=== PATIENT | male | born 1950 | race Caucasian/White ===

== ENCOUNTER 2020-11-03 12:25 | Emergency (ER) | payer BC, OTHER ==
[2020-11-03 12:32] VITALS: BMI 31.8
[2020-11-03] MEDS ORDERED: BAMLANIVIMAB 700 MG in SODIUM CHLORIDE 180 ML IVPB ONE (13:26)
[2020-11-03 17:11] VITALS: BP 156/78; PULSE 78; TEMP 99.1
== END 2020-11-03 17:11 | disposition home or self-care (01) ==
LOC: JCOVINFU 12:25 → JER 12:25
DX: U07.1 COVID-19 (principal)
CPT/HCPCS: 99284-25; M0239; Q0239

== ENCOUNTER 2022-07-21 04:34 | Day surgery (SDC) | payer OTHER ==
[2022-07-19 14:56] VITALS: BMI 28.7
[2022-07-21 11:22] VITALS: TEMP 97.8
[2022-07-21 14:53] VITALS: BP 121/80; PULSE 79; RESP 16
== END 2022-07-21 12:15 | disposition home or self-care (01) ==
LOC: JASU-ENDO 04:34
PROVIDERS: ATTEND Internal Medicine Gastroenterology
PROC: 0DJD8ZZ Inspection of Lower Intestinal Tract, Via Natural or Artificial Opening Endoscopic (ICD-10-PCS; principal; 2022-07-21 12:30)
DX: Z12.11 Encounter for screening for malignant neoplasm of colon (principal); K64.8 Other hemorrhoids; I10 Essential (primary) hypertension; E11.9 Type 2 diabetes mellitus without complications; Z79.84 Long term (current) use of oral hypoglycemic drugs

== ENCOUNTER 2023-07-20 04:34 | Day surgery (SDC) | payer OTHER ==
[2023-07-19 15:58] VITALS: BMI 25.0
[2023-07-20 10:29] VITALS: RESP 18
[2023-07-20 10:40] VITALS: BP 137/82; PULSE 61; TEMP 98.3
== END 2023-07-20 10:38 | disposition home or self-care (01) ==
LOC: JASU-ENDO 04:34
PROVIDERS: ATTEND Internal Medicine Gastroenterology
PROC: 0DB78ZX Excision of Stomach, Pylorus, Via Natural or Artificial Opening Endoscopic, Diagnostic (ICD-10-PCS; 2023-07-20)
PROC: 0DB68ZX Excision of Stomach, Via Natural or Artificial Opening Endoscopic, Diagnostic (ICD-10-PCS; principal; 2023-07-20 09:30)
DX: K29.50 Unspecified chronic gastritis without bleeding (principal); B96.81 Helicobacter pylori [H. pylori] as the cause of diseases classified elsewhere; K26.9 Duodenal ulcer, unspecified as acute or chronic, without hemorrhage or perforation; I10 Essential (primary) hypertension; E11.9 Type 2 diabetes mellitus without complications; Z79.85 Long-term (current) use of injectable non-insulin antidiabetic drugs
CPT/HCPCS: 82962; 88305-TC